=== PATIENT | male | born 1950 | race Caucasian/White ===

== ENCOUNTER → 2017-12-29 | Outpatient (CLI) | payer MEDICARE, OTHER | LOC: M RAD 12:33 | DX: Z01.818 Encounter for other preprocedural examination (principal); C61 Malignant neoplasm of prostate; N13.8 Other obstructive and reflux uropathy; M51.34 Other intervertebral disc degeneration, thoracic region | CPT/HCPCS: 71046 ==

== ENCOUNTER → 2018-03-18 | Outpatient (CLI) | payer MEDICARE, OTHER ==
[2018-03-18 09:47] LABS: PROSTATIC SPECIFIC AG MONITOR < 0.01 NG/ML (< 4.0)
== END ==
LOC: M LAB 08:26
DX: C61 Malignant neoplasm of prostate (principal); Z08 Encounter for follow-up examination after completed treatment for malignant neoplasm
CPT/HCPCS: 76857

== ENCOUNTER → 2018-04-16 | Outpatient (CLI) | payer MEDICARE, OTHER ==
[~2018-04-16] MED LIST: ISOVUE-370 76% 100ML VIAL (Q9967) As Ordered
== END ==
LOC: M RAD 11:28
DX: I89.8 Other specified noninfective disorders of lymphatic vessels and lymph nodes (principal); Z96.642 Presence of left artificial hip joint
CPT/HCPCS: Q9967

== ENCOUNTER → 2018-06-24 | Outpatient (CLI) | payer MEDICARE, OTHER ==
--- NOTE | 2018-06-24 19:11 | REP ---
LIMITED PELVIC ULTRASOUND: Real-time sonographic evaluation of the pelvis was performed. Patient has had a prior prostatectomy in January 2018 with postoperative lymphocele, which was subsequently drained. The urinary bladder is mildly distended with no wall abnormality. There is no adjacent cyst or fluid collection in the visualized pelvis. Electronically Signed by Guillaume Urrutia MD 06/24/2018 08:22 P
== END ==
LOC: M RAD 13:19
PROVIDERS: ATTEND Urology
DX: Z85.46 Personal history of malignant neoplasm of prostate (principal); Z90.79 Acquired absence of other genital organ(s)

== ENCOUNTER → 2018-09-21 | Outpatient (CLI) | payer MEDICARE, OTHER | LOC: M LAB 12:50 | PROVIDERS: ATTEND Urology | DX: Z85.46 Personal history of malignant neoplasm of prostate (principal) ==

== ENCOUNTER → 2018-12-21 | Outpatient (CLI) | payer MEDICARE, OTHER | LOC: M LAB 08:37 | PROVIDERS: ATTEND Internal Medicine | DX: C61 Malignant neoplasm of prostate (principal) | CPT/HCPCS: 36415; G0103 ==

== ENCOUNTER → 2019-02-12 | Outpatient (CLI) | payer MEDICARE, OTHER ==
[2019-02-12 08:14] LABS: CHOLESTEROL RISK RATIO 2.084 (<5)
== END ==
LOC: M LAB 07:14
PROVIDERS: ATTEND Internal Medicine Interventional Cardiology
DX: I25.119 Atherosclerotic heart disease of native coronary artery with unspecified angina pectoris (principal)

== ENCOUNTER 2019-04-07 09:19 | Day surgery (SDC) | payer MEDICARE, OTHER ==
[~2019-04-07] VITALS: Ht 170.2 cm; Wt 79.6 kg
[~2019-04-07 09:19] MED LIST changes: +ASPI81TA26 PO; +ATOR40TA75 PO; +BICA50TA9 PO; -ISOVUE-370 76% 100ML VIAL (Q9967) As Ordered; +LISI-1046 PO; +METO1TAB87 PO; +NS 1,000 ML IV ONE
[2019-04-07] MEDS ORDERED: PROPOFOL 200 MG/20 ML VIAL As Ordered ONE (09:35)
[2019-04-07] MEDS ORDERED: LIDOCAINE 2% INJ 100 MG/5 ML SDV (FOR ANES.) As Ordered ONE (09:35)
--- NOTE | 2019-04-07 11:04 | ROOR ---
Patient Name: Eric Salinas Procedure Date: 04/07/2019 10:41 AM Date of : 1950 Age: 68 Room: [facility] Gender: Male Note Status: Finalized Procedure: Total Colonoscopy to Cecum Indications: Screening in patient at increased risk: Colorectal cancer in mother 60 or older, Last colonoscopy: 2012 Providers: Marbin Garcia MD Referring MD: RENATE ZAVALA JR, MD Requesting Provider: Medicines: Monitored Anesthesia Care Complications: No immediate complications. Procedure: Pre-Anesthesia Assessment: - The heart rate, respiratory rate, oxygen saturations, blood pressure, adequacy of pulmonary ventilation, and response to care were monitored throughout the procedure. The Colonoscope was introduced through the anus and advanced to the cecum, identified by appendiceal orifice and ileocecal valve. The colonoscopy was performed without difficulty. The patient tolerated the procedure well. The quality of the bowel preparation was excellent. Findings: The perianal and digital rectal examinations were normal. Non-bleeding internal hemorrhoids were found during retroflexion. The hemorrhoids were small and Grade I (internal hemorrhoids that do not prolapse). Scattered small-mouthed diverticula were found in the recto-sigmoid colon, sigmoid colon and descending colon. The exam was otherwise without abnormality on direct and retroflexion views. Impression: - Non-bleeding internal hemorrhoids. - Diverticulosis in the recto-sigmoid colon, in the sigmoid colon and in the descending colon. - The examination was otherwise normal on direct and retroflexion views. - No specimens collected. - The exam was otherwise normal to the cecum. Recommendation: - Patient has a contact number available for emergencies. The signs and symptoms of potential delayed complications were discussed with the patient. Return to normal activities tomorrow. Written discharge instructions were provided to the patient. - Discharge patient to home. - Continue present medications. - Repeat colonoscopy in 5 years for screening purposes. - Return to referring physician. - The findings and recommendations were discussed with the patient's family. Marbin Garcia MD Marbin Garcia MD 04/07/2019 11:03:37 AM Electronically signed by Marbin Garcia MD Number of Addenda: 0 Note Initiated On: 04/07/2019 10:41 AM Estimated Blood Loss: Estimated blood loss: none.
[2019-04-07 11:30] VITALS: BP 182/86
== END 2019-04-07 12:33 | disposition home or self-care (01) ==
LOC: M OPP 09:19
PROVIDERS: ATTEND Internal Medicine Gastroenterology
DX: Z12.11 Encounter for screening for malignant neoplasm of colon (principal); Z80.0 Family history of malignant neoplasm of digestive organs; K64.0 First degree hemorrhoids; K57.30 Diverticulosis of large intestine without perforation or abscess without bleeding; Z79.82 Long term (current) use of aspirin; Z79.899 Other long term (current) drug therapy; Z88.8 Allergy status to other drugs, medicaments and biological substances; Z95.5 Presence of coronary angioplasty implant and graft

== ENCOUNTER → 2019-04-20 | Outpatient (CLI) | payer MEDICARE, OTHER ==
[~2019-04-20] MED LIST changes: +CALCTAB89 PO; +D 202000 PO; +LUPR22.5 IM; -NS 1,000 ML IV ONE
--- NOTE | 2019-04-21 13:39 | RADONC ---
RADIATION ONCOLOGY CONSULTATION NOTE DATE: 04/20/2019 CHART NUMBER: [id number] DIAGNOSIS: Prostate cancer. STAGE: IIIC, T3a, N0, M0, Amelia score 9 (4-5), Grade Group 5, initial PSA 4.49. ECOG PERFORMANCE STATUS: 0 CONSULTATION NOTE: Mr. 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 HISTORY OF PRESENT ILLNESS: The patient was in his usual state of health and a routine PSA was done on 02/24/2017 and found to be 4.49. On 11/05/2017, the patient underwent prostatic needle biopsy and pathology revealed a Amelia score 9 (4-5) adenocarcinoma of the prostate involving the left side. On 02/02/2018, the patient was seen at the [facility] and underwent a robotic-assisted radical prostatectomy and pelvic lymph node sampling. Pathology revealed a poorly differentiated Amelia score 9 (4-5) adenocarcinoma involving 25% of the entire prostate gland with positive surgical margins. Seven pelvic lymph nodes were sampled and were negative for malignancy. The tumor was noted to be Grade Group 5. There was found to be four sections with extraprostatic extension present. These were in the left posterior mid area, the left posterior base and the bladder neck. It extended 3 mm past the prostate capsule. In addition, perineural invasion was present. The patient was subsequently followed with routine PSA levels. On 03/18/2018 his PSA was less than 0.01. On 06/24/2018, the PSA had risen to 0.01. Then on 09/21/2018, PSA was 0.03 and on 12/21/2018 the PSA had risen to 0.12. The patient was seen in consultation at [facility] in [place] and hormonal therapy was initiated. In addition, it was recommended that the patient receive postoperative radiation therapy and he has since been referred to me. ALLERGIES: The patient is allergic to CEPHAZOLIN. PAST MEDICAL HISTORY: The patient's past medical history is positive for hypertension and arthritis. He has had a bilateral hip replacement as well as a heart attack in March 2015. He has had a stent placed. SOCIAL HISTORY: The patient does not smoke cigarettes. He drinks alcohol socially. FAMILY HISTORY: The patient's family history is positive for a mother with colon cancer and lung cancer and a brother with squamous cell carcinoma of the tongue. REVIEW OF SYSTEMS: The patient's review of systems is positive for some stress incontinence still now following his surgery, but is otherwise noncontributory. He denies nausea, vomiting, fevers, chills, night sweats, diplopia, headaches, anxiety or depression, anorexia, weight loss, visual disturbances, chest pain, urinary or bowel difficulties, bone pain or neurological problems. PHYSICAL EXAMINATION: The patient is a well-developed, well-nourished male in no acute distress. HEENT exam is normocephalic, atraumatic. Extraocular movements are intact. There is no palpable cervical, supraclavicular, infraclavicular, axillary, or inguinal lymphadenopathy present. Lungs are clear to auscultation and percussion. Heart has a regular rate and rhythm. Abdomen is benign with no hepatosplenomegaly, masses, or tenderness. Rectal examination reveals a normal anal sphincter tone. His prostate bed is smooth with no evidence of nodularity. Skeletal examination reveals no tenderness to pressure or percussion of the bony skeleton. Extremities reveal no clubbing, cyanosis, or edema. Neurologic exam is grossly intact as is the remainder of the physical examination. ASSESSMENT: Clearly the patient is a candidate for external beam radiation therapy and I have so informed him. I have discussed with the patient in detail the potential benefits as well as possible acute and chronic sequelae of external beam radiation therapy. I have discussed the logistics of treatment planning, simulation and subsequent fractionated daily radiation treatments. I have scheduled the patient for the next available simulation slot and radiation treatments will begin subsequently. Thank you for allowing us to participate in the care of this very pleasant gentleman. If I could be of any further assistance, or provide you any information, please free to contact me anytime. cc: Deana Sterling, DAVE Abarca Jr, MD Vipul Patel, MD
== END ==
LOC: M ONCR 12:57
PROVIDERS: ATTEND Radiology Radiation Oncology
DX: C61 Malignant neoplasm of prostate (principal)

== ENCOUNTER → 2019-05-11 | Outpatient (RCR) | payer MEDICARE, OTHER ==
--- NOTE | 2019-04-29 15:21 | RADONC ---
RADIATION ONCOLOGY SIMULATION NOTE: DATE: 04/27/2019 Chart #[id number] - [id number] Mr. Salinas was taken to the CT scan for CT simulation of his prostate bed field. CT was accomplished without difficulty or discomfort. Radiation treatment planning is underway and radiation treatments will begin subsequently. An immobilization device was created without difficulty or discomfort. It will be used throughout the course of treatment. I was physically present throughout the course of CT simulation.
== END ==
LOC: M ONCR 04-27 13:46
PROVIDERS: ATTEND Radiology Radiation Oncology
DX: C61 Malignant neoplasm of prostate (principal)

== ENCOUNTER → 2019-06-11 | Outpatient (RCR) | payer MEDICARE, OTHER ==
--- NOTE | 2019-05-18 06:43 | RADONC ---
RADIATION ONCOLOGY PROGRESS NOTE DATE: 05/17/2019 CHART #: [id number] Mr. Salinas is presently at a dose of 900 cGy to his prostate bed and is tolerating treatments quite well at this point with no significant difficulties related to his radiation therapy. He is having no significant urinary or bowel problems. REVIEW OF SYSTEMS: The patient's review of systems is noncontributory. Denies nausea, vomiting, fevers, chills, night sweats, diplopia, headaches, anxiety or depression, anorexia, weight loss, visual disturbances, chest pain, urinary or bowel difficulties, bone pain, or neurological problems. PHYSICAL EXAMINATION: The patient's skin is in good condition with no evidence of radiation change present. There is no moist or dry desquamation. The remainder of his physical exam remains unchanged. Mr. Salinas is tolerating treatments quite well and radiation will continue as scheduled.
--- NOTE | 2019-05-25 08:22 | RADONC ---
RADIATION ONCOLOGY PROGRESS NOTE: DATE: 05/24/2019 CHART NUMBER: [id number] Mr. Salinas is presently at a dose of 1800 cGy to his prostate bed and is tolerating treatments quite well at this point with no significant difficulties related to his radiation therapy. He is having no significant urinary or bowel problems and no bone pain. REVIEW OF SYSTEMS: The patient's review of systems is noncontributory. He denies nausea, vomiting, fevers, chills, night sweats, diplopia, headaches, anxiety or depression, anorexia, weight loss, visual disturbances, chest pain, urinary or bowel difficulties, bone pain, or neurological problems. PHYSICAL EXAMINATION: The patient's skin is in good condition with no evidence of moist or dry desquamation. The remainder of his physical exam remains unchanged. Mr. Salinas is tolerating treatments quite well and radiation will continue as scheduled.
--- NOTE | 2019-05-31 11:16 | RADONC ---
RADIATION ONCOLOGY PROGRESS NOTE DATE: 05/31/2019 CHART NUMBER: [id number] Mr. Salinas is presently at a dose of 2700 cGy to his prostate bed and is tolerating treatments quite well at this point with no complaints related to his radiation therapy. He is having no urinary or bowel difficulties and no bone pain. The patient's review of systems he has noncontributory. He denies nausea, vomiting, fevers, chills, night sweats, diplopia, headaches, anxiety or depression, anorexia, weight loss, visual disturbances, chest pain, urinary or bowel difficulties, bone pain, or neurological problems. PHYSICAL EXAMINATION: The patient's skin is in good condition with no evidence of radiation change present. There is no moist or dry desquamation. The remainder of the physical exam is within normal limits. Mr. Salinas is tolerating treatments quite well and radiation will continue as scheduled.
--- NOTE | 2019-06-08 15:18 | RADONC ---
RADIATION ONCOLOGY PROGRESS NOTE DATE: 06/07/2019 CHART NUMBER: [id number] PROGRESS NOTE: Mr. Salinas is presently at a dose of 3600 cGy to his prostate bed and is tolerating treatments quite well at this point with no complaints related to his radiation therapy. He is having no urinary or bowel difficulties and no bone pain. REVIEW OF SYSTEMS: The patient's review of systems is noncontributory. Denies nausea, vomiting, fevers, chills, night sweats, diplopia, headaches, anxiety or depression, anorexia, weight loss, visual disturbances, chest pain, urinary or bowel difficulties, bone pain, or neurological problems. PHYSICAL EXAMINATION: The patient's skin is in good condition with no evidence of radiation change present. There is no moist or dry desquamation. The remainder of his physical exam remains unchanged. Mr. Salinas is tolerating treatments quite well and radiation will continue as scheduled.
== END ==
LOC: M ONCR 05-13 10:47
PROVIDERS: ATTEND Radiology Radiation Oncology
DX: C61 Malignant neoplasm of prostate (principal)

== ENCOUNTER 2019-07-01 08:21 | Outpatient (RCR) | payer MEDICARE, OTHER ==
--- NOTE | 2019-06-14 12:37 | RADONC ---
RADIATION ONCOLOGY PROGRESS NOTE DATE: 06/14/2019 CHART NUMBER: [id number] Mr. Salinas is presently at a dose of 4500 cGy to his prostate bed and is tolerating treatments quite well at this point with no significant difficulties related to his radiation therapy other than some increased urinary frequency. REVIEW OF SYSTEMS: The patient's review of systems is otherwise noncontributory. He denies nausea, vomiting, fevers, chills, night sweats, diplopia, headaches, anxiety or depression, anorexia, weight loss, visual disturbances, chest pain, urinary or bowel difficulties, bone pain or neurological problems. PHYSICAL EXAMINATION The patient's skin is in good condition with no evidence of moist or dry desquamation. The remainder of his physical exam remains unchanged. Mr. Salinas is tolerating treatments quite well and radiation will continue as scheduled.
--- NOTE | 2019-06-21 10:23 | RADONC ---
RADIATION ONCOLOGY DATE: 06/21/2019 CHART NUMBER: [id number] Mr. Salinas is currently receiving radiation therapy to the prostatic bed. So far, he has received a dose of 5400 cGy to his prostatic bed. He is tolerating treatment quite well at this ointment. He has no new complaints. He has urinary frequency and nocturia 2-3 times a night, which he said does not bother him. He has occasional hot flashes. REVIEW OF SYSTEMS: Noncontributory. He denies fever, chills, headache, depression, weight loss, visual disturbance. He has no urinary or bowel difficulties other than persistent urinary frequency. He has no bone pain. He does not have any fatigue. PHYSICAL EXAMINATION: He is in good general condition. There is no noticeable skin changes. Mr. Salinas is tolerating treatment very well and radiation therapy will continue as planned. His second Lupron [facility] is scheduled in July. [facility]
--- NOTE | 2019-06-29 08:38 | RADONC ---
RADIATION ONCOLOGY DATE: 06/28/2019 CHART NUMBER: [id number] Mr. Salinas is receiving radiation therapy to the prostatic bed. So far, he has received a dose of 6660 cGy to his prostatic bed. He has no new complaints. He has nocturia 2-4 times and he sometimes has urgency. He is on ADT and experiences occasional hot flashes. REVIEW OF SYSTEMS: Noncontributory. He denies fever, chills, headaches, depression or weight loss. He has occasional urgency, nocturia 2-4 times, and hot flashes. He denies any bone pain. PHYSICAL EXAMINATION: He is in good condition. There is no noticeable skin changes. Overall, is tolerating treatment very well without any treatment related issues. He is scheduled for his next Lupron injection on July 13, 2019. Radiation therapy will continue as planned. [facility]
--- NOTE | 2019-07-02 09:21 | RADONC ---
RADIATION ONCOLOGY DATE OF SERVICE: 07/01/2019 Mr. Salinas carries a diagnosis of prostate CA. He underwent a robotic assisted laparoscopic prostatectomy for prostate cancer on November 05, 2017. After surgery, his PSA had risen slowly and salvage radiation therapy was recommended. His initiastaging was pT3N0 and he had a Amelia 9 (4+5). He started radiationtherapy on May 10, 2019. Radiation therapy was delivered to the prostatic bed. So far, he has received a dose of 6660 cGy in 37 fractions using IMRT with a 6 MeV photon beam. After dose of 4500 cGy, field was reduced and 4500 cGy in 25 fractions and the field was reduced after 4500 cGy to the additional 2160 cGy was delivered .prostatic bed. He tolerated treatment very well without unusual side effects. He has no significant urinary symptoms. He is feeling well. He was advised continuous followup care with the physicians involved and he was also asked to return here in one month for checkup. [facility]
== END 2019-07-10 ==
LOC: M ONCR 08:21
PROVIDERS: ATTEND Radiology Radiation Oncology
DX: C61 Malignant neoplasm of prostate (principal)

== ENCOUNTER → 2019-11-12 | Outpatient (CLI) | payer MEDICARE, OTHER ==
[~2019-11-12] MED LIST changes: -LISI-1046 PO; +LISI2.5T2 PO
[2019-11-12 09:34] LABS: BASO % 0.5 % (0.0-1.0); EOS # 0.2 10^3/uL (0.0-0.5); EOS % 3.6 % (0.0-3.0); HEMATOCRIT 41.4 % (42.0-52.0); HEMOGLOBIN 14.5 g/dl (13.5-17.5); LYMPH # 0.7 10^3/uL (1.5-5.0); LYMPH % 15.7 % (24.0-44.0); MEAN CORPUSCULAR HEMOGLOBIN 33.1 pg (27.0-33.0); MEAN CORPUSCULAR VOLUME 94.5 fl (80.0-96.0); MONO # 0.4 10^3/uL (0.0-0.8); MONO % 8.7 % (0.0-5.0); NEUTROPHILS # 3.1 10^3/uL (1.5-8.5); PLATELET COUNT, AUTOMATED 145 10^3/uL (150-450); RED BLOOD COUNT 4.38 10^6/uL (4.30-6.10); WHITE BLOOD COUNT 4.4 10^3/uL (4.0-10.0)
[2019-11-12 09:58] LABS: BLOOD UREA NITROGEN 24 MG/DL (7-18); CALCIUM LEVEL 8.8 MG/DL (8.8-10.2); CARBON DIOXIDE LEVEL 27 MEQ/L (21-32); CHLORIDE LEVEL 109 MEQ/L (98-107); GLOMERULAR FILTRATION RATE > 60.0 (>49); GLUCOSE, FASTING 109 MG/DL (70-100); POTASSIUM SERUM 4.1 MEQ/L (3.5-5.1); SODIUM LEVEL 140 MEQ/L (136-145)
== END ==
LOC: M LAB 08:35
PROVIDERS: ATTEND Nurse Practitioner Adult Health
DX: E78.5 Hyperlipidemia, unspecified (principal)

== ENCOUNTER → 2019-11-29 | Outpatient (CLI) | payer MEDICARE, OTHER | LOC: M LAB 10:50 | PROVIDERS: ATTEND Orthopaedic Surgery | DX: Z13.88 Encounter for screening for disorder due to exposure to contaminants (principal); Z47.1 Aftercare following joint replacement surgery; Z96.642 Presence of left artificial hip joint; Z96.641 Presence of right artificial hip joint; T56.891A Toxic effect of other metals, accidental (unintentional), initial encounter ==

== ENCOUNTER → 2020-03-06 | Outpatient (CLI) | payer MEDICARE, OTHER | LOC: M LAB 08:51 | DX: C61 Malignant neoplasm of prostate (principal) ==

== ENCOUNTER → 2020-07-03 | Outpatient (CLI) | payer MEDICARE, OTHER ==
[2020-07-03 11:15] LABS: BASO % 0.6 % (0.0-1.0); EOS # 0.1 10^3/uL (0.0-0.5); EOS % 2.3 % (0.0-3.0); HEMATOCRIT 45.5 % (42.0-52.0); HEMOGLOBIN 15.8 g/dl (13.5-17.5); LYMPH # 0.8 10^3/uL (1.5-5.0); LYMPH % 16.4 % (24.0-44.0); MEAN CORPUSCULAR HEMOGLOBIN 32.6 pg (27.0-33.0); MEAN CORPUSCULAR HGB CONC 34.7 g/dl (32.0-36.5); MONO # 0.5 10^3/uL (0.0-0.8); NEUTROPHILS # 3.3 10^3/uL (1.5-8.5); NEUTROPHILS % 70.5 % (36.0-66.0); PLATELET COUNT, AUTOMATED 141 10^3/uL (150-450); RED BLOOD COUNT 4.84 10^6/uL (4.30-6.10); WHITE BLOOD COUNT 4.7 10^3/uL (4.0-10.0)
[2020-07-03 11:56] LABS: ALBUMIN 3.6 GM/DL (3.2-5.2); ALT/SGPT 29 U/L (12-78); BLOOD UREA NITROGEN 19 MG/DL (7-18); CALCIUM LEVEL 9.1 MG/DL (8.8-10.2); CARBON DIOXIDE LEVEL 28 MEQ/L (21-32); CHLORIDE LEVEL 106 MEQ/L (98-107); CREATININE FOR GFR 1.08 MG/DL (0.70-1.30); GLOMERULAR FILTRATION RATE > 60.0 (>49); GLUCOSE, FASTING 104 MG/DL (70-100); LDH LACTATE DEHYDROGENASE 209 U/L (87-241); POTASSIUM SERUM 4.2 MEQ/L (3.5-5.1); PROSTATIC SPECIFIC AG MONITOR 0.21 NG/ML (< 4.00); SODIUM LEVEL 140 MEQ/L (136-145); TOTAL PROTEIN 6.8 GM/DL (6.4-8.2)
== END ==
LOC: M LAB 09:54
PROVIDERS: ATTEND Internal Medicine
DX: C61 Malignant neoplasm of prostate (principal); E78.00 Pure hypercholesterolemia, unspecified; I25.10 Atherosclerotic heart disease of native coronary artery without angina pectoris; I10 Essential (primary) hypertension

== ENCOUNTER → 2020-07-03 | Outpatient (CLI) | payer MEDICARE, OTHER ==
[2020-07-03 11:57] LABS: BLOOD UREA NITROGEN 19 MG/DL (7-18); CALCIUM LEVEL 9.1 MG/DL (8.8-10.2); CARBON DIOXIDE LEVEL 27 MEQ/L (21-32); CHLORIDE LEVEL 106 MEQ/L (98-107); CREATININE FOR GFR 1.07 MG/DL (0.70-1.30); GLOMERULAR FILTRATION RATE > 60.0 (>49); GLUCOSE, FASTING 114 MG/DL (70-100); POTASSIUM SERUM 4.2 MEQ/L (3.5-5.1); SODIUM LEVEL 140 MEQ/L (136-145)
== END ==
LOC: M LAB 09:51
PROVIDERS: ATTEND Nurse Practitioner Adult Health
DX: E78.00 Pure hypercholesterolemia, unspecified (principal); I25.10 Atherosclerotic heart disease of native coronary artery without angina pectoris; I10 Essential (primary) hypertension

== ENCOUNTER → 2020-08-24 | Outpatient (CLI) | payer MEDICARE, OTHER ==
[2020-08-24 12:54] LABS: HEMATOCRIT 43.2 % (42.0-52.0); HEMOGLOBIN 14.7 g/dl (13.5-17.5); MEAN CORPUSCULAR HEMOGLOBIN 32.7 pg (27.0-33.0); PLATELET COUNT, AUTOMATED 166 10^3/uL (150-450); WHITE BLOOD COUNT 4.5 10^3/uL (4.0-10.0)
[2020-08-24 14:37] LABS: ALBUMIN 3.6 GM/DL (3.2-5.2); ALT/SGPT 29 U/L (12-78); BILIRUBIN,TOTAL 0.6 MG/DL (0.2-1.0); BLOOD UREA NITROGEN 19 MG/DL (7-18); CALCIUM LEVEL 9.2 MG/DL (8.8-10.2); CARBON DIOXIDE LEVEL 28 MEQ/L (21-32); CHLORIDE LEVEL 106 MEQ/L (98-107); CREATININE FOR GFR 0.94 MG/DL (0.70-1.30); GLOMERULAR FILTRATION RATE > 60.0 (>49); GLUCOSE, FASTING 90 MG/DL (70-100); LDH LACTATE DEHYDROGENASE 236 U/L (87-241); POTASSIUM SERUM 4.3 MEQ/L (3.5-5.1); PROSTATIC SPECIFIC AG MONITOR 0.02 NG/ML (< 4.00); SODIUM LEVEL 140 MEQ/L (136-145); TOTAL PROTEIN 6.7 GM/DL (6.4-8.2)
== END ==
LOC: M LAB 09:43
PROVIDERS: ATTEND Internal Medicine
DX: C61 Malignant neoplasm of prostate (principal)

== ENCOUNTER → 2021-04-23 | Outpatient (REF) | payer MEDICARE, OTHER ==
[~2021-04-23] MED LIST changes: -LISI2.5T2 PO; +LISI2.5T9 PO
[2021-04-25 08:11] LABS: LDL DIRECT 72 mg/dL (0-99)
== END ==
LOC: M LAB REF 16:28
PROVIDERS: ATTEND Internal Medicine
DX: E78.00 Pure hypercholesterolemia, unspecified (principal)

== ENCOUNTER → 2021-07-19 | Outpatient (CLI) | payer MEDICARE, OTHER ==
[2021-07-19 12:05] LABS: BLOOD UREA NITROGEN 18 MG/DL (7-18); CALCIUM LEVEL 9.2 MG/DL (8.8-10.2); CARBON DIOXIDE LEVEL 32 MEQ/L (21-32); CHLORIDE LEVEL 104 MEQ/L (98-107); CREATININE FOR GFR 0.93 MG/DL (0.70-1.30); GLOMERULAR FILTRATION RATE > 60.0 (>42); GLUCOSE, FASTING 108 MG/DL (70-100); POTASSIUM SERUM 4.2 MEQ/L (3.5-5.1); SODIUM LEVEL 139 MEQ/L (136-145)
== END ==
LOC: M LAB 10:40
PROVIDERS: ATTEND Internal Medicine Cardiovascular Disease
DX: I10 Essential (primary) hypertension (principal); I25.10 Atherosclerotic heart disease of native coronary artery without angina pectoris

== ENCOUNTER 2022-08-09 17:16 | Emergency (ER) | payer MEDICARE, OTHER ==
[~2022-08-09] VITALS: Ht 170.2 cm; Wt 82.3 kg
[2022-08-09 19:59] VITALS: BP 159/72
== END 2022-08-09 20:02 | disposition home or self-care (01) ==
LOC: M ED 17:16
DX: R31.9 Hematuria, unspecified (principal); I10 Essential (primary) hypertension; Z88.1 Allergy status to other antibiotic agents; Z79.02 Long term (current) use of antithrombotics/antiplatelets; Z79.82 Long term (current) use of aspirin; Z79.811 Long term (current) use of aromatase inhibitors; Z79.899 Other long term (current) drug therapy

== ENCOUNTER 2024-04-28 10:10 | Day surgery (SDC) | payer MEDICARE, OTHER ==
[~2024-04-28] VITALS: Ht 170.2 cm; Wt 81.6 kg
[~2024-04-28 10:10] MED LIST changes: +AMLO1TAB25 PO; +BICA50TA4 PO; -BICA50TA9 PO; +CALCCAP4 PO; +CETI-24 PO; +ERLE60TA PO; +EZET10TA21 PO; +HYDR12CA PO; +LISI20TA33 PO; +PRES10CA2 PO
[2024-04-28] MEDS ORDERED: LIDOCAINE 2% 100MG/5ML SDV (FOR ANES.) As Ordered ONE (11:37)
[2024-04-28] MEDS ORDERED: propofoL 200 MG/20 ML VIAL As Ordered ONE (11:37)
[2024-04-28 12:50] VITALS: BP 138/72; TEMP 97.3; O2SAT 95
== END 2024-04-28 13:05 | disposition home or self-care (01) ==
LOC: M OPP 10:10
PROVIDERS: ATTEND Internal Medicine Gastroenterology
DX: Z12.11 Encounter for screening for malignant neoplasm of colon (principal); Z80.0 Family history of malignant neoplasm of digestive organs; K64.0 First degree hemorrhoids; K57.30 Diverticulosis of large intestine without perforation or abscess without bleeding; I25.10 Atherosclerotic heart disease of native coronary artery without angina pectoris; I25.2 Old myocardial infarction; I10 Essential (primary) hypertension; E78.5 Hyperlipidemia, unspecified; K21.9 Gastro-esophageal reflux disease without esophagitis; Z85.46 Personal history of malignant neoplasm of prostate; Z92.3 Personal history of irradiation; Z88.1 Allergy status to other antibiotic agents; Z79.82 Long term (current) use of aspirin; Z79.899 Other long term (current) drug therapy

== ENCOUNTER → 2025-04-14 | Outpatient (CLI) | payer MEDICARE, OTHER ==
[~2025-04-14] MED LIST changes: -EZET10TA21 PO; +EZET10TA57 PO; +HYDR12.510 PO; -HYDR12CA PO
== END ==
LOC: M LAB 10:45
PROVIDERS: ATTEND Internal Medicine
DX: C61 Malignant neoplasm of prostate (principal)